=== PATIENT | male | born 1980 | race American Indian/Alaskan Native ===

== ENCOUNTER 2021-01-31 08:00 | Outpatient (CLI) | payer OTHER | END 2021-01-31 08:30 | disposition home or self-care (01) | LOC: PPH VACUNA 08:00 | DX: Z23 Encounter for immunization (principal) ==

== ENCOUNTER 2024-04-04 11:29 | Outpatient (CLI) | payer OTHER | END 2024-04-04 11:40 | disposition home or self-care (01) | LOC: RAD 11:29 | DX: M16.11 Unilateral primary osteoarthritis, right hip (principal) ==